=== PATIENT | female | born 1990 | race Caucasian/White ===

== ENCOUNTER 2021-09-17 07:24 | Outpatient (RCR) | payer OTHER, SELFPAY ==
[2021-08-13 09:56] VITALS: BP 126/73; PULSE 82
[2021-08-20 08:17] VITALS: BP 131/72; PULSE 82
[2021-08-27 10:01] VITALS: BP 129/75; PULSE 77
[2021-09-03 08:27] VITALS: BP 122/80; PULSE 76
[2021-09-10 08:28] VITALS: BP 140/86; PULSE 72
--- NOTE | ~2021-09-17 | US_ITS ---
EXAMINATION: US OB BPP wo non-stress EXAM DATE: 08/20/2021 08:11 INDICATION: Gestational Diabetes. 3rd trimester. TECHNIQUE: Pelvic obstetrical transabdominal sonogram was performed by a technologist. There are mu ltiple grayscale and Doppler images available for interpretation. Comparison is made to prior examina tion from 08/13/2021. FINDINGS: There is a single fetus identified in vertex presentation with a heart rate of 159 beats pe r minute. The placenta is located in the posterior position. There is no sonographic evidence of ret roplacental hemorrhage identified. BIOPHYSICAL PROFILE (performed by the technologist) breathing (30 sec sustained breathing in 30 minutes): 2 out of 2 movement (3 gross body movements in 30 minutes): 2 out of 2 tone (one episode of wpvoclx-yemnxjppa-ravhanp limb movement): 2 out of 2 Amniotic fluid pocket (2 cm): 2 out of 2 Total score: 8 out of 8 IMPRESSION: 1. Single fetus with heart rate of 159 bpm. 2. Normal biophysical profile score of 8 out of 8. Reviewed, dictated and finalized at location A. UNTANT HELPER
--- NOTE | ~2021-09-17 | US_ITS ---
EXAMINATION: US OB BPP wo non-stress DATE: 09/17/2021 08:49 INDICATION: Gestational diabetes during third trimester TECHNIQUE: Real-time pelvic ultrasound was performed. The interpreting radiologist was not present fo r the study. COMPARISON: 09/10/2021 FINDINGS: There is a single living fetus in vertex presentation. The placenta is posterior. heart rate is 150 beats per minute (bpm). Biophysical profile performed by the technologist: breathing (30 sec sustained breathing in 30 minutes): 2 out of 2 movement (3 gross body movements in 30 minutes): 2 out of 2 tone (one episode of tcsuxsf-gxhvihvoo-zsbgyuu limb movement): 2 out of 2 Amniotic fluid pocket (2 cm): 2 out of 2 Total score: 8 out of 8 IMPRESSION: 1. Single living fetus in vertex presentation. 2. Biophysical profile 8 out of 8. Reviewed, dictated and finalized at location D.
--- NOTE | ~2021-09-17 | US_ITS ---
EXAMINATION: US OB follow up w BPP EXAM DATE: 09/03/2021 08:49 INDICATION: BPP and growth , 3rd trimester. TECHNIQUE: Pelvic obstetrical transabdominal sonogram was performed by a technologist. There are mu ltiple grayscale and Doppler images available for interpretation. Comparison is made to prior examina tion from 08/27/2021. FINDINGS: There is a single fetus identified in vertex presentation with a heart rate of 145 beats pe r minute. The placenta is located in the posterior position. There is no sonographic evidence of ret roplacental hemorrhage identified. The amniotic fluid index is 12.4 centimeters, which is normal. BIOMETRIC DATA: Biparietal diameter (BPD): 9.0 cm --------------> 36 weeks 2 days. Head circumference (HC): 33.2 cm ---------------> 37 weeks 6 days. Abdominal circumference (AC): 32.5 cm ---------> 36 weeks 3 days. Femur length (FL): 7.0 cm ------------------------> 36 weeks 0 days. These measurements are concordant. HC/AC ratio is 1.02 (The 5th -- 95th percentile range is 0.92-1.06. Estimated weight is 2935 g +/- 440 g. This is the 56th percentile when the currently reported clinical gestation age 36 weeks 2 days, clinical estimated date of delivery (GUALBERTO-OPE) 09/29 is used. Fe keenan estimated gestational age based on measurements from this exam is 36 weeks 5 days, with an estima ricci date of delivery (GUALBERTO-AUA) 09/26. BIOPHYSICAL PROFILE (performed by the technologist) breathing (30 sec sustained breathing in 30 minutes): 2 out of 2 movement (3 gross body movements in 30 minutes): 2 out of 2 tone (one episode of hcrqdss-xohmjfkwh-lsjtyhq limb movement): 2 out of 2 Amniotic fluid pocket (2 cm): 2 out of 2 Total score: 8 out of 8 IMPRESSION: 1. Single fetus with heart rate of 145 bpm, 56th weight percentile using GUALBERTO of 09/29. 2. Normal biophysical profile score of 8 out of 8. 3. Normal ASHLEIGH 12.4 cm. Reviewed, dictated and finalized at location A. HOSPICE IMPRESSION: 1. Single fetus with heart rate of 145 bpm, 56th weight percentile using GUALBERTO o f 09/29. 2. Normal biophysical profile score of 8 out of 8. 3. Normal ASHLEIGH 12.4 cm.
--- NOTE | ~2021-09-17 | US_ITS ---
EXAMINATION: US OB BPP wo non-stress DATE: 09/10/2021 08:26 CDT INDICATION: Gestational diabetes TECHNIQUE: Real-time transabdominal obstetric ultrasound. FINDINGS: 09/03/2021 There is a single living fetus in vertex presentation. The placenta is posterior without placenta pr evia. cardiac activity and movement is noted with a heart rate of 167 beats per minute. Biophysical profile: breathin of 2 movement: 2 of 2 tone: 2 of 2 Amniotic flud pocket: 2 of 2 Total score: 8 of 8 IMPRESSION: 1. Single living intrauterine in vertex presentation. 2: Total biophysical profile score of 8/8. Reviewed, dictated and finalized at location B.
--- NOTE | ~2021-09-17 | US_ITS ---
EXAMINATION: US OB BPP wo non-stress DATE: 08/27/2021 08:47 INDICATION: Gestational diabetes. Third trimester. TECHNIQUE: Real-time pelvic ultrasound was performed. COMPARISON: Ultrasound 08/20/2021 FINDINGS: There is a single living fetus in vertex presentation. The placenta is right posterior. heart rate is 163 beats per minute (bpm). Biophysical profile performed by the technologist: breathing (30 sec sustained breathing in 30 minutes): 2 out of 2 movement (3 gross body movements in 30 minutes): 2 out of 2 tone (one episode of kflvomo-vnxyqzpxs-zgvahpl limb movement): 2 out of 2 Amniotic fluid pocket (2 cm): 2 out of 2 Total score: 8 out of 8 IMPRESSION: 1. Single living fetus in vertex presentation. 2. Biophysical profile 8 out of 8. Reviewed, dictated and finalized at location A. WARE DEVELOPMENT LEADER
--- NOTE | ~2021-09-17 | US_ITS ---
EXAMINATION: US OB follow up w BPP DATE: 08/13/2021 09:43 INDICATION: Gestational diabetes, third trimester TECHNIQUE: Real-time pelvic ultrasound was performed. The interpreting radiologist was not present fo r the study. COMPARISON: None. FINDINGS: There is a single living fetus in vertex presentation. The placenta is posterior. heart rate is 140 beats per minute (bpm). Biophysical profile performed by the technologist: breathing (30 sec sustained breathing in 30 minutes): 2 out of 2 movement (3 gross body movements in 30 minutes): 2 out of 2 tone (one episode of zgalaid-kqwzprlir-kvrprin limb movement): 2 out of 2 Amniotic fluid pocket (2 cm): 2 out of 2 Total score: 8 out of 8 The following biometric data were obtained: Biparietal diameter (BPD): 8.4 cm; head circumference (HC): 32.5 cm; abdominal circumference (AC): 29 .0 cm; femur length (FL): 6.6 cm. These measurements are concordant. Estimated weight is 2285 g +/- 342 g, which correlates with the 59th percentile when 09/29/2021 i s used as estimated date of delivery. As single measurements, these parameters are each equal to the following estimated gestational ages w ith ranges of +/- 2 standard deviations: BPD: 34 weeks 1 days +/- 3 weeks 1 days. HC: 36 weeks 6 days +/- 2 weeks 5 days. AC: 33 weeks 1 days +/- 3 weeks 0 days. FL: 34 weeks 0 days +/- 3 weeks 0 days. estimated gestational age based solely on measurements from this exam is 34 weeks 4 days +/- 2 weeks 3 days. IMPRESSION: 1. Single living fetus in vertex presentation. 2. Biophysical profile 8 out of 8. 3. Estimated weight is 2285 g +/- 342 g, which correlates with the 59th percentile when 2 is used as estimated date of delivery. Reviewed, dictated and finalized at location A. MEN'S TENNIS COACH IMPRESSION: 1. Single living fetus in vertex presentation. 2. Biophysical profile 8 out of 8. 3. Estimated weight is 2285 g +/- 342 g, which correlates with the 59th p ercentile when 09/29/2021 is used as estimated date of delivery.
[2021-09-17 08:47] VITALS: BP 123/82; PULSE 66
== END 2021-11-04 08:15 | disposition home or self-care (01) ==
LOC: ANHOBOP 07:24
PROVIDERS: Visit Provider Obstetrics & Gynecology
DX: O24.419 Gestational diabetes mellitus in pregnancy, unspecified control (principal); O99.283 Endocrine, nutritional and metabolic diseases complicating pregnancy, third trimester; E03.9 Hypothyroidism, unspecified; Z3A.33 33 weeks gestation of pregnancy; Z3A.34 34 weeks gestation of pregnancy; Z3A.35 35 weeks gestation of pregnancy; Z3A.36 36 weeks gestation of pregnancy; Z3A.37 37 weeks gestation of pregnancy; Z3A.38 38 weeks gestation of pregnancy
CPT/HCPCS: 59025; 76816; 76819

== ENCOUNTER 2021-09-19 16:54 | Inpatient (IN) | payer OTHER, SELFPAY ==
[2021-09-19] VITALS (10 sets, daily range): BP systolic 139–163; BP diastolic 79–102; PULSE 61–74; RESP 18; TEMP 37.1; BMI 42.0
[2021-09-19 17:37] LABS: Basophils Percent Auto 0.5 % (0.2-1.2); Eosinophils Absolute Auto 0.1 K/mm3 (0-0.3); Eosinophils Percent Auto 0.8 % (0-4.4); Hematocrit 40.4 % (37.0-47.0); Hemoglobin 13.8 g/dL (12.0-15.0); Immature Granulocyte Absolute 0.03 K/mm3 (0.00-0.031); Immature Granulocyte Percent A 0.4 % (0-0.5); Lymphocytes Absolute Auto 1.49 K/mm3 (0.9-3.2); Lymphocytes Percent Auto 17.8 % (18.3-44.2); Mean Corpuscular HGB Conc 34.2 g/dl (32-36); Mean Corpuscular Hemoglobin 30.8 pg (26-34); Mean Corpuscular Volume 90.2 fl (80-100); Mean Platelet Volume 11.4 fl (7.4-10.4); Monocytes Absolute Auto 0.6 K/mm3 (0.1-0.6); Monocytes Percent Auto 6.6 % (2.6-8.5); Neutrophils Absolute Auto 6.2 K/mm3 (1.3-6.7); Neutrophils Percent Auto 73.9 % (45.5-73.1); Platelet Count Result 206 k/mm3 (150-375); Red Blood Count 4.48 M/mm3 (4.2-5.4); Red Cell Distribution Width 12.8 % (11.5-14.5); White Blood Count 8.4 K/mm3 (4.5-10.0)
[2021-09-19] MEDS: DINOPROSTONE 10 MG VAG INSERT VAGINAL (17:41)
--- NOTE | 2021-09-19 18:06 | PM.IMHP ---
H&P: HPI History of Present Illness Date/Time: 09/19/21 17:47 Catie is a 31yo @ 39.0wks (GUALBERTO 09/26/21) who presents to L&D for medical induction of labor. She has hypothyroidism and A1GDM. She has been undergoing routine care and has had normal testing with normal growth US. She reports good movement. Irregular contractions. No VB or LOF. No symptoms of pre-eclamspia. Her is complicated by: - Hypothyroidism on levothyroxine and ASA - Obesity - A1GDM; normal growth and testing - Elevated blood pressures on admission (none prior in ) Chief Complaint: induction of labor Review of Systems Review of Systems: All systems reviewed & are unremarkable except as noted in HPI and below (HPI) [facility] Past Medical History Medical History Hypothyroidism Obesity Family History Family History Mother Diabetes mellitus Mother Heart disease Mother Rheumatoid arthritis Mother Heart attack Mother Hypothyroid Mother Psoriatic arthritis Social History Social History Smoking packs per day: 0.5 Smoking cigarettes per day: 10.0 Years smoked: 8 Smoking pack-years: 4.00 Smoking status: Former smoker Tobacco type: cigarettes Second hand tobacco smoke exposure: No Alcohol intake: never Substance use: never Additional occupation/education comments: RN Gender identity (if verbalized by the patient): Female Sexual Orientation (if Verbalized by the Patient): Straight or Heterosexual Spiritual care concerns: No Agree to blood products: No Meds Home Medications and Allergies Home Medications Medication Instructions Recorded Confirmed Type aspirin 81 mg tablet,delayed 81 mg PO DAILY 07/10/21 09/19/21 History release levothyroxine 112 mcg tablet 112 mcg PO 3XW 07/10/21 09/19/21 History prenat.vits,arron,abv-dmym-qcaxj 1 tablet PO DAILY 07/10/21 09/19/21 History levothyroxine [Synthroid] 125 mcg PO 4XW 08/20/21 09/19/21 History cholecalciferol (vitamin D3) 25 mcg PO DAILY 09/13/21 09/19/21 History [Vitamin D3] docusate sodium [Colace] 100 mg PO DAILY 09/17/21 09/19/21 History Allergies Allergy/AdvReac Type Severity Reaction Status Date / Time No Known Allergies Allergy Verified 09/12/21 08:16 Vital Signs Vital Signs - 24 hr 09/19/21 17:31 Pulse Rate 74 Blood Pressure 163/102 H Exam Const: General: cooperative, comfortable and no acute distress Nutritional Appearance: obese Resp: Effort & Inspection: normal respiratory effort Cardio: Rate: regular rate GI: GI Palp: No abdominal tenderness and Yes Soft to palpation : Other: FHT's: 140's/ mod dmitri/ + accels/ no decels - cat 1 TOCO: irregular ctx's Cervix: 1.5/30/-3, anterior, medium Membranes: intact Presentation: cephalic Psych: Appearance: grossly normal Affect: normal affect Attitude: cooperative H&P: Results Labs Labs: Short CBC 09/19/21 Range/Units 17:29 WBC 8.4 (4.5-10.0) K/mm3 Hgb 13.8 (12.0-15.0) g/dL Hct 40.4 (37.0-47.0) % Plt Count 206 (150-375) k/mm3 Assessment and Plan Assessment and plan (1) Gestational diabetes mellitus: Qualifiers: Gestational diabetes mellitus control: diet-controlled Trimester: third trimester Qualified Code(s): O24.410 - Gestational diabetes mellitus in , diet controlled Code(s): O24.419 - Gestational diabetes mellitus in , unspecified control Status: Acute (2) Hypothyroidism affecting : Qualifiers: Trimester: third trimester Qualified Code(s): O99.283 - Endocrine, nutritional and metabolic diseases complicating , third trimester; E03.9 - Hypothyroidism, unspecified Code(s): O99.280 - Endocrine, nutritional and metabolic diseases complicating pregnan
--- NOTE | 2021-09-19 18:06 | WPDHPUPDATE1 ---
History and Physical Update Update Date/Time: 09/19/21 18:06 History and Physical has been reviewed, including an updated exam of the patient. There are NO changes in the patient's condition. Risks, benefits, and alternatives have been discussed and questions answered. Patient agrees to proceed with procedure.
[2021-09-19 19:15] LABS: Alanine Aminotransferase 17 U/L (4-35); Albumin Level 3.4 g/dL (3.5-5.1); Alkaline Phosphatase 165 U/L (38-126); Anion Gap 8 mmol/L (8-16); Aspartate Amino Transferase 31 U/L (14-36); Bilirubin,Total 0.3 mg/dL (0.2-1.3); Blood Urea Nitrogen 17 mg/dL (7-17); Calcium 8.7 mg/dL (8.4-10.2); Carbon Dioxide 18 mmol/L (22-30); Chloride 108 mmol/L (98-107); Estimated CRCL calculation 117 ml/min; Estimated Glomerular Filt Rate > 60; Glucose 102 mg/dL (65-110); Potassium 3.9 mmol/L (3.4-5.0); Sodium 134 mmol/L (137-145)
[2021-09-19 20:14] LABS: Creatinine Urine 233.2 mg/dL
[2021-09-19 20:16] LABS: Add Urine Microscopic? YES; Appearance Urine Cloudy (Clear); Bacteria Urine Trace /hpf; Bilirubin Urine Negative (Negative); Blood Urine Negative (Negative); Color Urine Yellow (Yellow); Glucose Urine UA Negative (Negative); Ketones Urine Trace mg/dL (Negative); Leukocyte Esterase Ur Negative LEU/UL (NEGATIVE); Mucus Urine Rare /lpf; Nitrate Urine Negative (Negative); Protein Urine 3+ mg/dL (Negative); Squamous Epithelial Cell Urine Moderate /hpf (Few); Urobilinogen Urine Negative mg/dL (<2.0); WBC Urine 0-3 /hpf (0-3)
[2021-09-19 21:10] LABS: Total Protein Urine Random > 500 mg/dL
[2021-09-19 23:45] LABS: Glucose Point of Care 90 mg/dl (65-105)
[2021-09-20] VITALS (238 sets, daily range): BP systolic 106–159; BP diastolic 53–116; PULSE 51–134; RESP 16–18; TEMP 36.2–37.2; O2SAT 63–100
[2021-09-20 03:10] LABS: Glucose Point of Care 81 mg/dl (65-105)
--- NOTE | 2021-09-20 06:10 | WPDANESEPP ---
Anes - Eval Pre Procedure Procedure: labor epidural Date/Time: 09/20/21 06:10 Surgeon: ervin Pre Op Diagnosis: Induction of Labor Patient Data Age: 31 Gender: F Height: 1.68 m Weight: 118 kg Last Vital Signs Temp 36.6 C 09/20/21 03:29 Pulse 63 09/20/21 06:00 Resp 16 09/20/21 03:29 BP 145/86 H 09/20/21 06:00 Allergies Allergy/AdvReac Type Severity Reaction Status Date / Time No Known Allergies Allergy Verified 09/12/21 08:16 Home Medications Medication Instructions Recorded Confirmed Type aspirin 81 mg tablet,delayed 81 mg PO DAILY 07/10/21 09/19/21 History release levothyroxine 112 mcg tablet 112 mcg PO 3XW 07/10/21 09/19/21 History prenat.vits,arron,ldm-cjmf-dbcjz 1 tablet PO DAILY 07/10/21 09/19/21 History levothyroxine [Synthroid] 125 mcg PO 4XW 08/20/21 09/19/21 History cholecalciferol (vitamin D3) 25 mcg PO DAILY 09/13/21 09/19/21 History [Vitamin D3] docusate sodium [Colace] 100 mg PO DAILY 09/17/21 09/19/21 History Laboratory Tests 09/19/21 09/19/21 09/19/21 17:29 17:29 17:29 WBC 8.4 K/mm3 K/mm3 (4.5-10.0) RBC 4.48 M/mm3 M/mm3 (4.2-5.4) Hgb 13.8 g/dL g/dL (12.0-15.0) Hct 40.4 % % (37.0-47.0) MCV 90.2 fl fl (80-100) MCH 30.8 pg pg (26-34) MCHC 34.2 g/dl g/dl (32-36) RDW 12.8 % % (11.5-14.5) Plt Count 206 k/mm3 k/mm3 (150-375) MPV 11.4 fl H fl (7.4-10.4) Immature Gran % (Auto) 0.4 % % (0-0.5) Neut % (Auto) 73.9 % H % (45.5-73.1) Lymph % (Auto) 17.8 % L % (18.3-44.2) [place] % (Auto) 6.6 % % (2.6-8.5) Eos % (Auto) 0.8 % % (0-4.4) Baso % (Auto) 0.5 % % (0.2-1.2) Lymph # (Auto) 1.49 K/mm3 K/mm3 (0.9-3.2) [place] # (Auto) 0.6 K/mm3 K/mm3 (0.1-0.6) Eos # (Auto) 0.1 K/mm3 K/mm3 (0-0.3) Baso # (Auto) 0.0 K/mm3 K/mm3 (0.0-0.1) Abs Immat Gran (auto) 0.03 K/mm3 K/mm3 (0.00-0.031) Absolute Neuts (auto) 6.2 K/mm3 K/mm3 (1.3-6.7) Absolute Nucleated RBC 0.0 K/mm3 K/mm3 (0.0-0.012) Nucleated RBC % 0.0 % % (0.0-0.2) Sodium Potassium Chloride Carbon Dioxide Anion Gap BUN Creatinine Estim Creat Clear Calc Estimated GFR Glucose POC Capillary Glucose Uric Acid Calcium Total Bilirubin AST ALT Alkaline Phosphatase Total Protein Albumin Urine Color Urine Appearance Urine pH Ur Specific [place] Urine Protein Urine Glucose (UA) Urine Ketones Ur Blood (Man) Urine Nitrate Urine Bilirubin Urine Urobilinogen Ur Leukocyte Esterase Urine RBC Urine WBC Ur Squamous Epith Cells Urine Bacteria Urine Mucus U Random Total Protein Urine Creatinine Protein/Creat Ratio 2 RPR Pending Blood Type O Positive Antibody Screen Negative 09/19/21 09/19/21 09/19/21 18:51 19:59 19:59 WBC RBC Hgb Hct MCV MCH MCHC RDW Plt Count MPV Immature Gran % (Auto) Neut % (Auto) Lymph % (Auto) [place] % (Auto) Eos % (Auto) Baso % (Auto) Lymph # (Auto) [place] # (Auto) Eos # (Auto) Baso # (Auto) Abs Immat Gran (auto) Absolute Neuts (auto) Absolute Nucleated RBC Nucleated
[2021-09-20] MEDS: miSOPROStol 25 MCG TABLET VAGINAL (06:55)
[2021-09-20 07:04] LABS: Glucose Point of Care 86 mg/dl (65-105)
[2021-09-20 08:32] LABS: Rapid Plasma Reagin Non-Reactive (NonReactive)
--- NOTE | 2021-09-20 08:59 | PM.OBPNLAB ---
Pain Control Date/time seen: 09/20/21 08:59 Pain control: tolerating well Pelvic Exam Dilation (cm): 3 (.5) station: -3 Amniotic membrane status: Ruptured (AROM, clear 0852) Contractions Monitor mode: External Contraction frequency: 2 Status status: Category l Assessment and Plan Assessment: induction ongoing Plan: continuous present management
[2021-09-20] MEDS: LACTATED RINGERS 1,000 ML 125 ML IV CONT ×3 (10:53→13:35)
[2021-09-20 11:26] LABS: Glucose Point of Care 92 mg/dl (65-105)
[2021-09-20 13:42] LABS: Glucose Point of Care 67 mg/dl (65-105)
[2021-09-20] MEDS: OXYTOCIN 30 UNITS/NS 500 ML 30 UNITS/500 ML BAG 6 UNITS IV CONT (14:33)
[2021-09-20 15:27] LABS: Glucose Point of Care 75 mg/dl (65-105)
[2021-09-20 17:29] LABS: Glucose Point of Care 62 mg/dl (65-105)
[2021-09-20] MEDS: LORATADINE 10 MG TABLET PO (17:54)
[2021-09-20] MEDS: ONDANSETRON INJ 4 MG/2 ML VIAL IV PUSH (17:54)
[2021-09-20] MEDS: FAMOTIDINE 20 MG/2 ML VIAL IV PUSH (17:54)
[2021-09-20 19:25] LABS: Glucose Point of Care 95 mg/dl (65-105)
[2021-09-20 20:27] LABS: Glucose Point of Care 67 mg/dl (65-105)
[2021-09-20 21:27] LABS: Glucose Point of Care 81 mg/dl (65-105)
[2021-09-20 22:30] LABS: Glucose Point of Care 93 mg/dl (65-105)
[2021-09-20 23:30] LABS: Glucose Point of Care 90 mg/dl (65-105)
[2021-09-21] VITALS (135 sets, daily range): BP systolic 115–165; BP diastolic 55–118; PULSE 42–223; RESP 16–20; TEMP 36.4–37.9; O2SAT 80–100
[2021-09-21 00:43] LABS: Glucose Point of Care 73 mg/dl (65-105)
[2021-09-21] MEDS: diphenhydrAMINE HCl INJ 50 MG/ML VIAL 25 MG IV PUSH (00:45)
[2021-09-21 01:45] LABS: Glucose Point of Care 78 mg/dl (65-105)
[2021-09-21] MEDS: AMPICILLIN 2 GM/NS 100 ML 2 GM/100 ML BAG IVPB (03:07)
[2021-09-21 03:13] LABS: Glucose Point of Care 99 mg/dl (65-105)
[2021-09-21] MEDS: LACTATED RINGERS 1,000 ML 999 ML IV CONT (04:39)
[2021-09-21] MEDS: LORATADINE 10 MG TABLET PO (05:00)
[2021-09-21] MEDS: miSOPROStol 200 MCG TABLET 1000 MCG (05:29)
[2021-09-21] MEDS: CARBOPROST TROMETHAMINE 250 MCG/ML AMPUL IM ×2 (05:34→06:02)
[2021-09-21] MEDS: OXYTOCIN 30 UNITS/NS 500 ML 30 UNITS/500 ML BAG 125 UNITS IV CONT ×2 (05:35→08:20)
[2021-09-21] MEDS: OXYTOCIN 10 UNITS/ML VIAL (05:36)
--- NOTE | 2021-09-21 06:40 | P.PCNOB_ITS ---
OB - Delivery Note Procedure Delivery date: 09/21/21 Events: Gestational Diabetes (A1), Preeclampsia w/o severe features and Other (hypothyroidism, medical induction of labor) Intrapartal Events: Other (protracted active phase) Induction method: Per Misoprostol Protocol and Per Cervidil Protocol Delivery augmentation: Rupture of Membranes and Pitocin Delivery monitor: External FHT and Internal Uterine Route of delivery: Laceration Description: Perineal - 1st Degree Delivery repair: vicryl Specimen: Yes (placenta) Quantitative Blood Loss (ml): 1,200 Anesthesia type: Epidural Disposition: Floor Baby Date of : 09/21/21 Time of : 05:22 Weeks of gestation at delivery: 39 (.2) Infant gender: Male Weight (pounds): 7 Weight (ounces): 11 presentation: vertex position: Left Occiput Anterior Placenta delivery description: Expressed Cord Vessel Description: 3 Vessels and Delayed Cord Clamping score one minute: 7 score five minutes: 8 Narrative: Catie had a long induction with Cervidil followed by misoprostol x1. Her acti ve labor was also protracted, but she never met criteria for arrest of active phase and subsequently progressed to complete dilation. She pushed for approximately an hour with good maternal effort. She delivered the head over intact perineum. No nuchal cord was palpated. She easily delivered the infant's shoulders and body. The was immediately placed skin to skin and had spontaneous cry. Delayed cord clamping was performed. The umbilical cord was then clamped and cut. A segment of the cord was collected for cord gases. The remaining cord blood was collected for typing. With Pitocin running and gentle downward traction on the cord, the placenta delivered without complications. Brisk bleeding was then noted and bimanual massage revealed uterine atony. Misoprostol 1000 mcg was placed rectally while bimanual massage was continued. The patient was not tolerating exam therefore fentanyl 100 mcg was given and patient was better able to tolerate the bimanual exam for a short time. Patient continued to have episodes of atony and bimanual massage was continued, uterine sweep was negative for any placental fragments or membranes. Hemabate 250 mcg was given IM and the uterus was noted to firm up. Another episode of atony was noted, therefore 10 unit of Pitocin were given IM. I then examined the patient and a first-degree perineal laceration was noted as well as a small tear in the hymen. Two ncxlda-ns-xwfjv stitches using 3-0 Vicryl were placed and she was found to be hemostatic at her laceration sites. I once again did a bimanual exam to examine for the atony, which was once again present. I then attempted to place a Bakri balloon, however, the fundus was firm, it was only the lower uterine segment which was atonic and the Bakri balloon would not stay in place. She continued to not tolerate exam therefore Anesthesia was called into the room and her epidural was bolused. Once comfortable I continued giving bimanual massage. An additional dose of Hemabate was given at that time (had been 30 minutes). I continued doing the bimanual massage until good uterine tone and minimal bleeding was noted. Sponge, lap, instrument, and needle counts were correct at the end of the procedure. Mom and baby were left in the birthing suite in a stable condition. [facility] Delivery Billing Delivery Delivery: Delivery Charge
[2021-09-21] MEDS: LACTATED RINGERS 1,000 ML 999 ML (07:23)
[2021-09-21] MEDS: DIPHENOXYLATE/ATROPINE (*CRX) 2.5 MG TABLET 2 TABLET PO (07:24)
[2021-09-21] MEDS: IBUPROFEN 600 MG TABLET PO ×3 (08:19→21:16)
[2021-09-21] MEDS: BENZOCAINE 20% AER SPR (*SP) 56 GM CAN 1 SPRAY TOPICAL (08:20)
[2021-09-21] MEDS: WITCH HAZEL 40 PADS 1 PAD TOPICAL (08:20)
[2021-09-21 08:45] LABS: Hematocrit 36.3 % (37.0-47.0); Hemoglobin 12.3 g/dL (12.0-15.0); Mean Corpuscular HGB Conc 33.9 g/dl (32-36); Mean Corpuscular Hemoglobin 30.8 pg (26-34); Mean Platelet Volume 11.2 fl (7.4-10.4); Platelet Count Result 189 k/mm3 (150-375); Red Blood Count 3.99 M/mm3 (4.2-5.4); White Blood Count 24.5 K/mm3 (4.5-10.0)
--- NOTE | 2021-09-21 10:45 | PC.NURSE ---
Patient transferred to post room #281 via wheelchair. Support person present. Oriented to unit, room, information board, rooming in, admission packet and security measures. Patient verbalizes understanding.
[2021-09-22 00:10] VITALS: BP 108/62; PULSE 74; RESP 16; TEMP 36.3
[2021-09-22 05:00] VITALS: BP 104/50; PULSE 70; RESP 16
[2021-09-22] MEDS: IBUPROFEN 600 MG TABLET PO ×2 (05:21→13:00)
[2021-09-22] MEDS: LEVOTHYROXINE SODIUM 112 MCG TABLET PO (05:45)
[2021-09-22 05:47] LABS: Hematocrit 27.6 % (37.0-47.0); Hemoglobin 9.3 g/dL (12.0-15.0)
[2021-09-22] MEDS: DOCUSATE SODIUM 100 MG CAPSULE PO (08:32)
[2021-09-22] MEDS: MULTIVIT/MIN/PREN/FOL AC/IRON TABLET 1 TAB PO (08:32)
[2021-09-22] MEDS: POLYSACCHARIDE IRON COMPLEX 150 MG CAPSULE PO (08:32)
[2021-09-22] MEDS: LORATADINE 10 MG TABLET PO (08:32)
[2021-09-22 08:35] VITALS: BP 128/61; PULSE 65; RESP 16; TEMP 36.8; O2SAT 98
--- NOTE | 2021-09-22 09:32 | PM.OBPNVD ---
OB - PN: Subj Subjective Date/time seen: 09/22/21 09:32 Patient comments: no complaints, pain well controlled and other (No PIH sx) [place] baby status: doing well OB - PN: Obj Data Labs CBC & Chem 7: 09/22/21 05:15 09/19/21 18:51 Labs: Laboratory Results - last 24 hr 09/22/21 05:15 Hgb 9.3 L D Hct 27.6 L OB - PN A/P Plan day: 1 Plan: routine care, discharge home (Possibly this pm. ) and other (unsure bc method) Time Spent With Patient Time: Total time spent is greater than 50% in coordination of care (as documented) at patient's floor/unit and/or counseling patient: Exam : Bimanual exam- vagina & uterus: other (Uterus firm, nt @U)
--- NOTE | 2021-09-22 10:54 | WPDANLDPN2 ---
Anes-Prog Note L&D Date/Time: 09/22/21 10:54 Comfortable throughout: labor and delivery Neuraxial method: epidural Epidural/Spinal procedure site: clean & non-tender Neuro status: Neuro function grossly intact. Cardiovascular status: normal Respiratory status: normal Airway patency: baseline Mental status: baseline Post-Op hydration status: normal Vital Signs: Last Vital Signs Temp 98.3 F 09/22/21 08:35 Pulse 65 09/22/21 08:35 Resp 16 09/22/21 08:35 BP 128/61 09/22/21 08:35 Pulse Ox 98 09/22/21 08:35 Pain score (VAS): 3 I/O: Intake & Output 09/21/21 09/22/21 09/22/21 23:59 07:59 15:59 Intake Total 700 520 Output Total 700 1800 Balance 0 -1280 Post-procedural complaints: none Patient feedback: Patient satisfied with anesthetic care.
[2021-09-22 12:50] VITALS: BP 130/60; PULSE 71; RESP 16; TEMP 37; O2SAT 98
[2021-09-22 16:05] VITALS: BP 130/83; PULSE 73; RESP 14; TEMP 36.7; O2SAT 99
[2021-09-22] MEDS: TETANUS,DIPHTHERIA,AC PERTUSSIS ADULT (0.5 ML) BOOSTRIX IM (17:28)
--- NOTE | 2021-09-22 17:44 | PC.NURSE ---
Patient viewed the discharge video Mother & Baby Care, The First Two Weeks . Patient was given the opportunity and encouraged to ask questions. Patient verbalized understanding of information shared and has been given the mother/baby guide for home reference.
[2021-09-23 11:44] VITALS: BP 140/77; PULSE 66; RESP 20; TEMP 37.3; O2SAT 100
--- NOTE | 2021-09-26 07:52 | PM.OBDSVD ---
DS: Admitting Diagnosis Discharge Date 09/22/21 Admitting Diagnosis Induction of labor A1GDm Hypothyroidism Pre-eclampsia w/o severe features DS: Discharge Diagnosis Discharge Diagnosis (1) Pre-eclampsia: Qualifiers: Trimester: third trimester Qualified Code(s): O14.93 - Unspecified pre-eclampsia, third trimester Code(s): O14.90 - Unspecified pre-eclampsia, unspecified trimester Status: Acute (2) Gestational diabetes mellitus: Qualifiers: Gestational diabetes mellitus control: diet-controlled Trimester: third trimester Qualified Code(s): O24.410 - Gestational diabetes mellitus in , diet controlled Code(s): O24.419 - Gestational diabetes mellitus in , unspecified control Status: Acute (3) Hypothyroidism affecting : Qualifiers: Trimester: third trimester Qualified Code(s): O99.283 - Endocrine, nutritional and metabolic diseases complicating , third trimester; E03.9 - Hypothyroidism, unspecified Code(s): O99.280 - Endocrine, nutritional and metabolic diseases complicating , unspecified trimester; E03.9 - Hypothyroidism, unspecified Status: Acute (4) Normal vaginal delivery of first : Code(s): O80 - Encounter for full-term uncomplicated delivery Status: Acute (5) hemorrhage: Qualifiers: hemorrhage type: third-stage Qualified Code(s): O72.0 - Third-stage hemorrhage Code(s): O72.1 - Other immediate hemorrhage Status: Acute OB - DS: Summary OB Procedures : NST and Ultrasound OB Procedures Intrapartum: Spontaneous Vag Delivery OB Procedures: : None Peripartum Data Delivery Method: Natural Vaginal Laceration Description: Perineal - 1st Degree complications: uterine atony 1: Gender: Male Disposition of : home Status at Discharge Functional status at discharge: independent ambulation Overall status at discharge: patient is back to baseline Time Spent with Patient Time attestation: Total time spent providing and/or coordinating discharge services: Exam Const: General: cooperative, comfortable and no acute distress Orientation/consciousness: patient oriented x3 Resp: Effort & Inspection: normal respiratory effort Auscultation: clear to auscultation bilaterally Cardio: Rate: regular rate GI: Inspection: non-distended GI Palp: No abdominal tenderness and Yes Soft to palpation Auscultation: normal bowel sounds : Other: fundus firm Skin: General skin exam: normal color Neuro: General: patient oriented x3 Extrem: General: normal to inspection Psych: Appearance: grossly normal Affect: normal affect Attitude: cooperative DS: Data Data Completed and Pending Completed studies during hospitalization: Pending at discharge 09/21/21 06:48 Surgical [PTH] Routine Discharge Plan Discharge Attending physician on discharge: Siena Agosto Discharging Clinician: Madai Pop Anticipated Discharge Date/Time: 09/22/21 17:33 Patient Disposition: Home, Self-Care Activity: may shower and pelvic rest Diet: regular Discharge Instructions: Education: Mom and Baby Guide Given to: Mother Follow-Up: Call your delivering provider's office for an appointment to be seen in: 1 Week Mom and baby should come to the [facility] for the follow-up appointment. Appointment Date/Time: September 23, 2021 at 11:00 am What to expect at your follow-up visit: Call [phone] if you are unable to keep your appointment time. BREAST CARE: * Wear a snug supportive bra. * For engorgement discomfort: Breast Feeding: * Apply warm moist washcloths * Express milk as needed to relieve engorgement * Wear loose clothing * For sore nipples: * Identify correct latch-on
== END 2021-09-22 18:16 | disposition home or self-care (01) | DRG 768 ==
LOC: ANHLDR 09-20 08:58 → ANHOB2 09-22 09:35 → ANHLDR 09-23 12:03 → ANHOB2 09-23 12:03
PROVIDERS: Admitting Provider Obstetrics & Gynecology; Visit Provider Obstetrics & Gynecology Gynecology
DX: O24.429 Gestational diabetes mellitus in childbirth, unspecified control (principal); Z37.0 Single live birth; O72.1 Other immediate postpartum hemorrhage; Z3A.39 39 weeks gestation of pregnancy; O36.8330 Maternal care for abnormalities of the fetal heart rate or rhythm, third trimester, not applicable or unspecified; O70.0 First degree perineal laceration during delivery; O14.04 Mild to moderate pre-eclampsia, complicating childbirth; O99.284 Endocrine, nutritional and metabolic diseases complicating childbirth; E03.9 Hypothyroidism, unspecified; O16.4 Unspecified maternal hypertension, complicating childbirth; O99.214 Obesity complicating childbirth; E66.9 Obesity, unspecified
CPT/HCPCS: 36415; 59025; 76819; 80053; 81001; 82570; 82948; 84156; 84550; 85014; 85018; 85025; 85027; 86592; 86850; 86900; 86901; 88307; 90715; A9270; J0290; J1200; J2405; J2590; J2795; J7120; J7121

== ENCOUNTER 2023-08-02 17:49 | Emergency (ER) | payer OTHER, SELFPAY ==
--- NOTE | ~2023-08-02 | XR_ITS ---
EXAM: XR forearm RT 2V DATE: 08/02/2023 18:32 HISTORY: FALL, GENERALIZED PULLING PAIN . COMPARISON: None available. FINDINGS: Normal mineralization. No fracture or dislocation. No lytic or blastic lesion. Joint space s are maintained. No erosion or periosteal change. Soft tissues within normal limits. IMPRESSION: No acute osseous finding in the right forearm. If clinical symptoms or mechanism of injury suggest wrist or elbow injury, consider dedicated radiogr aphs of those specific joints. Reviewed, dictated and finalized at location K. HER WOOD WELDER IMPRESSION: No acute osseous finding in the right forearm. If clinical symptoms or mechanism of injury suggest wrist or elbow injury, cons ider dedicated radiographs of those specific joints.
--- NOTE | ~2023-08-02 | XR_ITS ---
EXAM: XR humerus RT DATE: 08/02/2023 18:32 HISTORY: FALL, GENERALIZED PULLING PAIN . COMPARISON: None available. FINDINGS: Normal mineralization. No fracture or dislocation. No lytic or blastic lesion. Joint space s are maintained. No erosion or periosteal change. There is suggestion of an elbow joint effusion. IMPRESSION: Possible elbow joint effusion, recommend dedicated elbow radiographs for further evaluati on. Reviewed, dictated and finalized at location K. ER MEDICAL DIRECTOR IMPRESSION: Possible elbow joint effusion, recommend dedicated elbow radiograph s for further evaluation.
--- NOTE | ~2023-08-02 | XR_ITS ---
EXAM: XR elbow RT min 3V DATE: 08/02/2023 19:11 HISTORY: POSSIBLE FOOSH INJURY, GEN PAIN . COMPARISON: X-ray forearm and humerus, same date. FINDINGS: Normal mineralization. No fracture or dislocation. No lytic or blastic lesion. Joint space s are maintained. No erosion or periosteal change. Small elbow joint effusion. IMPRESSION: Small elbow joint effusion, which can accompany occult radial head fractures in a patient of this age. Reviewed, dictated and finalized at location K. TH SERVICES COORDINATOR
[2023-08-02 17:56] VITALS: BP 138/98; PULSE 75; RESP 16; TEMP 36.6; O2SAT 98
--- NOTE | 2023-08-02 18:48 | ED.UPPEXIN ---
HPI - Extremity Injury (Upper) General Chief Complaint: Extremity Injury, Upper Stated Complaint: Fall Injury/Right Wrist/Shoulder Time Seen by Provider: 08/02/23 18:48 Source: patient, family, RN notes reviewed and old records reviewed Mode of arrival: ambulatory Limitations: no limitations History of Present Illness HPI narrative: 33 year old female who presents to [facility] care with complaints of pain to her right forearm,elbow and upper arm after fall. Patient was running after child who was in his little play car tripped and fell onto her right side. Patient has abrasion to her palm of right hand and small abrasions on right lateral aspect of her right knee. Patient reports pain to her wrist up to her shoulder with most pain to her elbow region. Patient reports that she is unable to raise her raise her right arm completely due to pain. Patient has no obvious deformity to right arm, strong pulses right arm. MD complaint: injury to: right, arm (upper arm), elbow and wrist Onset (ago): hour(s) (1700 today) Place: outdoors Severity scale (1-10): 10 Exacerbating factors: movement of extremity Treatments prior to arrival: cold therapy and NSAIDS Related Data Home Medications Medication Instructions Recorded Confirmed levothyroxine 125 mcg tablet 125 mcg PO 4XW 08/20/21 03/04/23 (Synthroid) cholecalciferol (vitamin D3) 25 25 mcg PO DAILY 09/13/21 03/04/23 mcg (1,000 unit) capsule (Vitamin D3) Ozempic 08/02/23 Zyrtec 08/02/23 metformin 500 mg tablet,extended mg PO 08/02/23 release 24 hr Allergies Allergy/AdvReac Type Severity Reaction Status Date / Time No Known Allergies Allergy Verified 08/02/23 18:35 Review of Systems Review of Systems: CONSTITUTIONAL: Denies fever, chills, or sweats. EYES: Denies visual changes, redness, or discharge. ENT: Denies rhinorrhea, congestion, sore throat, or otalgia. CARDIOVASCULAR: Denies chest pain, palpitations, or edema. RESPIRATORY: Denies cough or dyspnea. GASTROINTESTINAL: Denies abdominal pain, nausea, vomiting, or diarrhea. GENITOURINARY: Denies dysuria or hematuria. SKIN: Denies rash or itching. MUSCULOSKELETAL: Denies back pain,positive for pain right arm from wrist to shoulder, or myalgia. NEUROLOGIC: Denies headache, numbness, or weakness. PSYCHIATRIC: Denies anxiety or depression. All systems reviewed & are unremarkable except as noted in HPI and below [facility] Past Medical History Medical History (Updated 08/06/23 @ 08:42 by Alena Nicolas NP) Encounter for IUD insertion 10/2021 - fell out Gestational diabetes mellitus Hypothyroidism Obesity Prediabetes Family History Family History Mother Diabetes mellitus Mother Heart disease Mother Rheumatoid arthritis Mother Heart attack Mother Hypothyroid Mother Psoriatic arthritis Social History Social History (Updated 03/04/23 @ 08:01 by Stella Watts MA) Smoking packs per day: 0 Smoking cigarettes per day: 0.0 Years smoked: 0 Smoking pack-years: 0.00 Smoking status: Former smoker Tobacco type: cigarettes Second hand tobacco smoke exposure: No Alcohol intake: current Alcohol use details: rarely Substance use: never Substance use type: does not use Lack of Transportation: No Lack of Food: Never True Current Housing: I Have Housing Concerned About Future Housing: No Difficulty Paying Gas/Electric Bills: No Difficulty Paying for Meds: No Currently Unemployed: No Education: Master's Degree or Higher Difficulty w/ Childcare or Family Care: No Living arrangements: with family Occupation/Education: occupation Additional occupation/education comments: RN Gender identity (if verbalized by the patient): Female Sexual Orientation (if Verbalized by the Patient): Straight or Heterosexual Spiritual care concerns: No Agree to blood products: No Comments At time of signature, agree with
--- NOTE | 2023-08-02 19:02 | PC.NURSE ---
back to xray for additional films
== END 2023-08-02 19:47 | disposition home or self-care (01) ==
PROVIDERS: Emergency Provider Registered Nurse
DX: M25.421 Effusion, right elbow (principal); S59.901A Unspecified injury of right elbow, initial encounter; W01.0XXA Fall on same level from slipping, tripping and stumbling without subsequent striking against object, initial encounter; Y93.02 Activity, running; E03.9 Hypothyroidism, unspecified; E66.9 Obesity, unspecified; Z68.38 Body mass index [BMI] 38.0-38.9, adult; Z87.891 Personal history of nicotine dependence
CPT/HCPCS: 73060; 73080; 73090; 99214; A4565; G0463